=== PATIENT | male | born 1975 | race African-American/Black ===

== ENCOUNTER 2016-09-29 17:30 | Inpatient (IN) | payer OTHER ==
[~2016-09-29] VITALS: Ht 165.1 cm; Wt 91.2 kg
--- NOTE | ~2016-09-29 | PA ---
Unit #: [id number] #: [id number] Patient: RADHA GARCIA [id number] [facility] [address] [place] [address] [id number] Antonia MR#: [id number] NAME: RADHA GARCIA ROOM: P202 Age: 41 Sex: M Admission Date: 09/29/2016 : 1975 Date of Assessment: 09/30/2016 Attending Physician: Chas Wooten M.D. Admitting Physician: Chas Wooten M.D. Primary Care Physician: Primary Care Physician No PSYCHIATRIC ASSESSMENT IDENTIFYING INFORMATION The patient is a 41-year-old male admitted for alcohol detox. CHIEF COMPLAINT "I just came in to clear my head." INFORMANT(S) Patient, reliability is fair. HISTORY OF PRESENT ILLNESS The patient is a 41-year-old male who reports a history of one previous treatment for alcohol while residing in [place]. The patient returns stating that he is drinking heavily on a daily basis and was convinced by family members to come and seek treatment. The patient states that he has had difficulty getting off the couch recently. When seen today, though, he denies any suicidal or homicidal ideation and denies any recent changes in sleep or appetite. He is continuing to grieve the of his mother. He is presently unemployed per his report. He did endorse feelings of hopelessness, helplessness, and low energy, but denied suicidal ideation. He denies abuse of psychoactive substance apart from alcohol. He denies any history of medical issues and is on no psychotropic or other medications. PAST PSYCHIATRIC HISTORY As above. PAST MEDICAL HISTORY Noncontributory. MEDICATIONS None. ALLERGIES Aspirin. FAMILY HISTORY Noncontributory. SOCIAL HISTORY The patient reports substance use as noted previously. He reports he last used alcohol "about 3 days ago." He denies use of other psychoactive substances. Unit #: [id number] #: [id number] Patient: RADHA GARCIA MENTAL STATUS EXAMINATION Examination at this time reveals the patient to be a well-developed well-nourished male appearing stated age. He is in no apparent physical distress at the time of examination. He is awake, alert, and oriented in all spheres. His mood is mildly dysphoric, his affect is congruent. Speech is generally well-coherent. There are no gross deficits in memory or cognition noted. Intelligence is judged to be in the average range based on fund of knowledge. The patient is cooperative throughout the interview. He is currently denying suicidal or homicidal ideation, and denies any psychotic symptoms. His judgment and insight appear to be intact. ASSETS AND LIABILITIES The patient's assets: Motivation for change. Liabilities: Lack of resources. DIAGNOSTIC IMPRESSION Alcohol use disorder. TREATMENT PLAN The patient remains hospitalized for safety and stabilization. Routine detoxification protocol for alcohol has been initiated. ESTIMATED LENGTH OF STAY 3 to 4 days. Followup will take place through the auspices of community mental health resources. Dictated by... Chas Wooten M.D. SANGITA/rachel TD: 09/30/2016 14:40 JOB #: [id number] PSYCHIATRIC ASSESSMENT Page 1 of 1 X Chas Wooten MD X PSYCHIATRIC ASSESSMENT
--- NOTE | ~2016-09-29 | DS ---
Unit #: [id number] #: [id number] Patient: RADHA GARCIA [id number] [facility] [address] [place] [address] [id number] MR#: [id number] NAME: RADHA GARCIA ROOM: P202 Age: 41 Sex: M Admission Date: 09/29/2016 : 1975 Discharge Date: 10/01/2016 Attending Physician: Chas Wooten M.D. DISCHARGE SUMMARY REASON FOR ADMISSION The patient is a 41-year-old male, admitted to the [address] [place] [address] for alcohol detox. HOSPITAL COURSE The patient was admitted to [address] [place] [address] and placed on routine detoxification for alcohol. His detox was a brief and uneventful one. He was active within therapeutic milieu and reported no changes in mood, sleep, appetite, or suicidal or homicidal ideation. By 10/01/2016, he requested discharge and it was so ordered. FINAL DIAGNOSES Alcohol use disorder. DISPOSITION ON DISCHARGE The patient is discharged on no psychotropic or other medications. FOLLOWUP Followup will take place through the auspices of the chemical dependency intensive outpatient program and community mental health providers. PROGNOSIS The patient's prognosis is considered fair. Dictated by... Chas Wooten M.D. CB/rome TD: 10/01/2016 13:16 JOB #: [id number] DISCHARGE SUMMARY Page 1 of 1 X Chas Wooten MD X DISCHARGE SUMMARY
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
[2016-09-30 09:53] LABS: URINE APPEARANCE CLEAR; URINE BILIRUBIN NEG (NEG); URINE BLOOD NEG (NEG); URINE COLOR YELLOW; URINE GLUCOSE NEG (NEG); URINE KETONE NEG (NEG); URINE LEUKOCYTE ESTERASE TRACE (NEG); URINE NITRATE NEG (NEG); URINE PH 6.5 (5-8); URINE PROTEIN NEG (NEG); URINE SPECIFIC GRAVITY 1.009 (1.003-1.035)
[2016-09-30 09:56] LABS: URBCS1 AUWI 0-2 /[HPF] (0-2); URINE BACTERIA AUWI NEG (NEGATIVE); URINE SQUAMOUS EPITHELIAL CELL NONE SEEN /[HPF]; UWBCS1 AUWI 0-2 (0-5)
[2016-09-30 10:07] LABS: ALBUMIN SERUM 4.3 g/dL (3.5-5.0); BILIRUBIN,TOTAL 1.2 mg/dL (0.2-2.0); BUN/CREATININE RATIO 9.09; CALCIUM SERUM 9.5 mg/dL (8.4-10.2); CREATININE SERUM 1.1 mg/dL (0.6-1.4); GLOM FILT RATE Estimated 95.5 mL/min (>60); POTASSIUM 3.6 mmol/L (3.5-5.1); PROTEIN TOTAL SERUM 7.9 g/dL (6.0-8.3)
[2016-09-30 10:08] LABS: BASOPHIL% 0.5 % (0-2.5); EOSINOPHIL# 0.1 X10e3 (0-0.7); EOSINOPHIL% 1.2 % (0.0-7.0); HEMOGLOBIN 14.3 gm/dL (13.0-16.0); LYMPHOCYTE# 2.7 X10e3 (1.0-3.5); LYMPHOCYTE% 34.5 % (17.0-45.0); MEAN CELL VOLUME 74.8 FL (83-96); MEAN CORPUSCULAR HEMOGLOBIN 24.3 PG (28-34); MEAN CORPUSCULAR HGB CONC 32.5 g/dL (30-36); MEAN PLATELET VOLUME 7.8 FL (6.5-11.5); MONOCYTE# 0.5 X10e3 (0-1.0); NEUTROPHIL# 4.6 X10e3 (1.5-7.1); NEUTROPHIL% 57.8 % (40-75); PLATELET COUNT 252 X10e3 (140-420); RED BLOOD COUNT 5.89 X10e (3.90-5.60); WHITE BLOOD COUNT 7.9 X10e3 (4.0-10.5)
[2016-09-30 10:21] LABS: AMPHETAMINE NEG (NEG); BARBITURATES NEG (NEG); BENZODIAZEPINES NEG (NEG); COCAINE NEG (NEG); MARIJUANA NEG (NEG); OPIATES NEG (NEG); TRICYCLIC ANTIDEPRESSANTS NEG (NEG); U METHADONE NEG (NEG)
[2016-09-30 10:22] LABS: DIFF IND NO
== END 2016-10-01 12:20 | disposition home or self-care (01) | DRG 897 ==
LOC: P2S 19:21
PROVIDERS: Specialist
PROC: HZ2ZZZZ Detoxification Services for Substance Abuse Treatment (ICD-10-PCS; principal; 2016-09-29)
DX: F10.10 Alcohol abuse, uncomplicated (principal)
CPT/HCPCS: 80053; 80307; 81003; 85025; 86592